=== PATIENT | female | born 1960 | race Asian ===

== ENCOUNTER 2024-03-27 07:07 | Day surgery (SDC) | payer OTHER ==
[~2024-03-27] VITALS: Ht 152.4 cm; Wt 44.5 kg
[2024-03-27] MEDS ORDERED: LIDOCAINE 2% 100 MG/5 ML UJET TP ONE (09:06)
[2024-03-27] MEDS: fentaNYL citrate 0.05 MG/ML VIAL ONE (09:24)
[2024-03-27] MEDS: MIDAZOLAM 2 MG/2 ML VIAL ONE (09:55)
== END 2024-03-27 11:01 | disposition home or self-care (01) ==
LOC: MMU 07:07 → MOR 07:07
PROVIDERS: ATTEND Internal Medicine Gastroenterology
DX: R19.5 Other fecal abnormalities (principal); I10 Essential (primary) hypertension; E11.9 Type 2 diabetes mellitus without complications; Z85.3 Personal history of malignant neoplasm of breast; Z98.891 History of uterine scar from previous surgery; Z79.899 Other long term (current) drug therapy; Z98.890 Other specified postprocedural states
CPT/HCPCS: 45378; 82948; J2250; J3010